=== PATIENT | male | born 1990 | race Caucasian/White ===

== ENCOUNTER 2017-12-06 21:04 | Inpatient (IN) | payer SELFPAY ==
[2017-12-06 22:04] LABS: APPEARANCE,URINE CLEAR; BILIRUBIN,URINE NEGATIVE (NEGATIVE); COLOR,URINE AMBER; GLUCOSE, URINE NEGATIVE (NEGATIVE); KETONES,URINE NEGATIVE (NEGATIVE); LEUKOCYTE ESTERASE,URINE NEGATIVE (NEGATIVE); NITRITE,URINE POSITIVE (NEGATIVE); PROTEIN,URINE NEGATIVE (NEGATIVE); URINE SPECIFIC GRAVITY 1.004
[2017-12-06] MEDS ORDERED: METOCLOPRAMIDE HCL INJ/PF 10 MG/2 ML SDV IV ONE (22:30)
[2017-12-06] MEDS ORDERED: KETOROLAC TROMETHAMINE INJ/PF 30 MG/1 ML SDV IV ONE (22:30)
--- NOTE | 2017-12-06 22:58 | RADIOLOGY REPORT (SQ) ---
CT abdomen and pelvis without contrast on 12/06/2017 CLINICAL INDICATION: Lower abdominal pain TECHNIQUE: Multiple axial images are obtained throughout the abdomen and pelvis without the administration of contrast. This exam was performed according to our departmental dose-optimization program, which includes automated exposure control, adjustment of the mA and/or kV according to patient size and/or use of iterative reconstruction technique. Total DLP is 1174.01 mGy*cm. COMPARISON: None FINDINGS: Abdomen: The lung bases are clear. There are no renal or ureteral stones and no hydronephrosis. The unenhanced solid abdominal organs are unremarkable. There is no abdominal adenopathy. There is no free fluid or free air within the abdomen. The abdominal portion of the GI tract is unremarkable. Pelvis: There is an oval fluid collection in the right pelvis with surrounding fat stranding. This measures approximately 6.7 x 3.6 x 5.8 cm. Portion of this is in contact with the right aspect of the sigmoid colon. A few diverticula are noted. Portion of this superiorly is in contact with a small bowel loop. Normal appendix is visualized in the right lower quadrant away from the fluid collection and area of inflammation in the right pelvis. This fluid collection most likely represents abscess although no air is present. Most likely etiology would be from diverticulitis although definite site of diverticulitis is not visualized. Small bowel abnormality is also possible. Would recommend treatment for infection and short-term follow-up examination with IV and oral and possibly rectal contrast to better evaluate. The area of inflammation and fluid collection is near where the distal portion of the appendix may be extending into the right pelvis and therefore cannot completely exclude perforated distal tip appendicitis but the appendix that is visualized appears unremarkable and this is not favored. There is no pelvic adenopathy. No bony abnormality is noted. IMPRESSION: 1. 6.7 cm fluid collection with surrounding inflammation in the right pelvis most consistent with abscess. Exact etiology of this abscess is not confidently visualized on this unenhanced CT. Most likely etiology would be from diverticulitis although definite site of diverticulitis is not visualized. This inflammation is away from a normal-appearing appendix although the distalmost appendix may extend up to near the area of inflammation and therefore perforated distal tip appendicitis is not fully excluded. Follow-up CT with IV, oral and possibly rectal contrast could better evaluate. 2. No other acute abnormality.
[2017-12-06 23:10] LABS: HEMATOCRIT 43.6 % (37.9-51.0); MEAN CORPUSCULAR HEMOGLOBIN 31.1 pg (27.0-33.4); MEAN CORPUSCULAR HGB CONC 34.3 g/dL (32.0-36.0); MEAN CORPUSCULAR VOLUME 91 fl (80-97); PLATELET COUNT 280 10^3/uL (150-450); RED BLOOD COUNT 4.82 10^6/uL (4.35-5.55); RED CELL DISTRIBUTION WIDTH 13.2 % (11.5-14.0); WHITE BLOOD COUNT 20.5 10^3/uL (4.0-10.5)
[2017-12-06] MEDS ORDERED: ERTAPENEM SODIUM INJ 1 GM VIAL IV ONE (23:32)
[2017-12-06] MEDS ORDERED: FENTANYL CITRATE INJ/PF 100 MCG/2 ML AMPUL IV ONE (23:33)
[2017-12-06 23:36] LABS: ABSOLUTE LYMPHOCYTES# (MANUAL) 2.1 10^3/uL (0.5-4.7); ABSOLUTE MONOCYTES # (MANUAL) 2.1 10^3/uL (0.1-1.4); ABSOLUTE NEUTROPHILS# (MANUAL) 16.4 10^3/uL (1.7-8.2); BASOPHILS % (MANUAL) 0 % (0-2); EOSINOPHILS % (MANUAL) 0 % (0-6); LYMPHOCYTES % (MANUAL) 10 % (13-45); MONOCYTES % (MANUAL) 10 % (3-13); SEGMENTED NEUTROPHILS % (MAN) 80 % (42-78); TOTAL CELLS COUNTED 100
[2017-12-06 23:37] LABS: PLATELET COMMENT ADEQUATE; RBC MORPHOLOGY COMMENT NORMO-CYTIC/CHROMIC
--- NOTE | 2017-12-06 23:38 | ER Document Report ---
ED General - General Mode of Arrival: Ambulatory Information source: Patient TRAVEL OUTSIDE OF THE [place] IN LAST 30 DAYS: No <MELODY HATCH - Last Filed: 12/07/17 00:03> <JATIN PAREDES - Last Filed: 12/07/17 00:34> - General Chief Complaint: Abdominal Pain Stated Complaint: ABDOMINAL PAIN Time Seen by Provider: 12/06/17 22:03 Notes: 19-year-old male patient presents with 1 week of low abdominal pain that radiates into his rectal area. Patient reports that the pain started approximately 9 days ago lasted for 7 days resolved for 2 days and returned today. Patient reports that he has had nausea with vomiting 2 today, denies any diarrhea. Patient also reports some pain with urination and difficulty getting his stream started. Patient reports fever at home today of 99.5. Patient is otherwise healthy has no past medical or surgical history and does not take any medications. (MELODY HATCH) - Related Data Allergies/Adverse Reactions: No Known Allergies Allergy (Unverified 01/11/15 11:33) Past Medical History - General Information source: Patient - Social History Smoking Status: Current Every Day Smoker Chew tobacco use (# tins/day): No Frequency of alcohol use: None Drug Abuse: None Family History: Reviewed & Not Pertinent Patient has suicidal ideation: No Patient has homicidal ideation: No - Medical History Medical History: Negative Renal/ Medical History: Denies: Hx Peritoneal Dialysis Past Surgical History: Reports: Hx Orthopedic Surgery - hand - Immunizations Hx Diphtheria, Pertussis, Tetanus Vaccination: Yes <MELODY HATCH - Last Filed: 12/07/17 00:03> Review of Systems - Review of Systems Constitutional: No symptoms reported EENT: No symptoms reported Cardiovascular: No symptoms reported Respiratory: No symptoms reported Gastrointestinal: See HPI Genitourinary: See HPI Male Genitourinary: No symptoms reported Musculoskeletal: No symptoms reported Skin: No symptoms reported Hematologic/Lymphatic: No symptoms reported Neurological/Psychological: No symptoms reported <MELODY HATCH - Last Filed: 12/07/17 00:03> Physical Exam <MELODY HATCH - Last Filed: 12/07/17 00:03> <JATIN PAREDES - Last Filed: 12/07/17 00:34> - Vital signs Vitals: Temp Pulse Resp BP Pulse Ox 99.3 F 79 18 133/71 H 96 12/06/17 21:33 12/06/17 21:33 12/06/17 21:33 12/06/17 21:33 12/06/17 21:33 - Notes Notes: PHYSICAL EXAMINATION: GENERAL: Ill-appearing, well-nourished and in moderate distress. HEAD: Atraumatic, normocephalic. EYES: Pupils equal round and reactive to light, extraocular movements intact, sclera anicteric, conjunctiva are normal. ENT: Nares patent, oropharynx clear without exudates. Moist mucous membranes. NECK: Normal range of motion, supple without lymphadenopathy LUNGS: Breath sounds clear to auscultation bilaterally and equal. No wheezes rales or rhonchi. HEART: Regular rate and rhythm without murmurs ABDOMEN: TTP to RLQ through LLQ worse on right. Guarding present, no rebound. No masses appreciated. Musculoskeletal: Normal range of motion, no pitting or edema. No cyanosis. NEUROLOGICAL: Cranial nerves grossly intact. Normal speech, normal gait. Normal sensory, motor exams PSYCH: Normal mood, normal affect. SKIN: Warm, diaphoretic, normal turgor, no rashes or lesions noted. (MELODY HATCH) Course - Laboratory Result Diagrams: 12/06/17 22:51 12/06/17 22:51 <MELODY HATCH - Last Filed: 12/07/17 00:03> - Laboratory Result Diagrams: 12/06/17 22:51 12/06/17 22:51 <JATIN PAREDES - Last Filed: 12/07/17 00:34> - Re-evaluation Re-evalutation: Otherwise healthy 27-year-old male presenting with complaints of low abdominal pain. Pain is worse to the right lower quadrant. Patient does not have any history of renal stones however patient does have positive nitrites on his urinalysis and patient is complaining of pain with urination. While awaiting lab work will order CT limited to evaluate for renal stone. Patient's vital signs are stable, patient is not tachycardic and is normotensive however patient does appear to be in acute pain. CT abdomen pelvis reveals a pelvic abscess measuring approximately 6.7 x 3.6 x 5.8 cm. I consulted my attending physician Dr. Paredes who came to the bedside to evaluate the patient. Patient does not have any swelling to his scrotum nor does he have any abnormalities around his rectal area. Upon further questioning patient and now reports that approximately 1 month ago he had a abscess to his perennial area that they thought have resolved. Called and spoke with Dr. León general surgeon who will be reviewing the images from the patient's CT scan. Patient and his are up to date as to the findings up to this point. Dr. Paredes was present at bedside for this discussion. Patient will be started on Invanz and will be given additional IV pain medications. 12/06/17 23:45 Dr. León at bedside evaluating patient. WBC 20.5 with left shift. (MELODY HATCH) 12/07/17 00:32 Patient was initially seen by the nurse practitioner, Melody Hatch. She felt the patient looked ill and appropriately obtain an immediate CT scan. CT scan showed a pelvic abscess. I looked at CT scan with and evaluate the patient. Patient's initially had pain approximately a week to week and half ago. It then went away and came back 3 days ago. Is to continue worse and therefore is come to the ER. No fevers. No vomiting. No diarrhea. The only other symptoms he had was approximately 3-4 weeks ago he had what sounds to be very a developing perineal abscess which eventually went away on its own. He takes no medications and otherwise healthy. On exam he has no genital pain. He has some lower abdominal pain and suprapubic region. He does not have any swelling around the rectal area. Dr. León was called and he did come and evaluate the patient for definitive care for his abscess. Invanz has been given. Dictation of this chart was performed using voice recognition software; therefore, there may be some unintended grammatical errors. (JATIN PAREDES) - Vital Signs Vital signs: Temp Pulse Resp BP Pulse Ox 98.9 F 79 25 H 146/72 H 97 12/07/17 00:08 12/06/17 21:33 12/07/17 00:00 12/06/17 22:41 12/06/17 23:00 - Laboratory Laboratory results interpreted by me: 12/06/17 12/06/17 21:50 22:51 WBC 20.5 H Seg Neuts % (Manual) 80 H Lymphocytes % (Manual) 10 L Abs Neuts (Manual) 16.4 H Abs Monocytes (Manual) 2.1 H Urine Nitrite POSITIVE H Urine Urobilinogen 2.0 H Discharge - Discharge Admitting Provider: Surgicalist Unit Admitted: Medical Floor <MELODY HATCH - Last Filed: 12/07/17 00:03> <JATIN PAREDES - Last Filed: 12/07/17 00:34> - Discharge Clinical Impression: Pelvic abscess in male Abdominal pain Qualifiers: Abdominal location: right lower quadrant Qualified Code(s): R10.31 - Right lower quadrant pain Leukocytosis Qualifiers: Leukocytosis type: unspecified Qualified Code(s): D72.829 - Elevated white blood cell count, unspecified Condition: Stable Disposition: ADMITTED INPATIENT
--- NOTE | 2017-12-07 00:16 | PDOC H&P ---
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 He has dysuria and frequency. He denies similar episodes, history of trauma, previous gastrointestinal problems. Approximately 1 month ago, and 6 months ago, he had a small perineal abscess drained spontaneously. He is seen in the emergency department where he underwent CT scan of showed an intra-pelvic abscess possibly related to diverticulitis. Surgery was consulted and he was advised admission. Past Medical History Past Medical History: None Past Surgical History Past Surgical History: No Past Surgical History: Reports: Orthopedic Surgery - hand Social History Smoking Status: Current Every Day Smoker Family History Family History: Reviewed & Not Pertinent Parental Family History Reviewed: Yes Children Family History Reviewed: Yes Sibling(s) Family History Reviewed.: Yes Medication/Allergy Home Medications: Oxycodone HCl/Acetaminophen [Percocet 5-325 mg Tablet] 1 tab PO QID #15 tablet 01/11/15 Allergies/Adverse Reactions: No Known Allergies Allergy (Unverified 01/11/15 11:33) Review of Systems Constitutional: PRESENT: other - Patient denies weight loss anorexia Eyes: ABSENT: visual disturbances Ears: ABSENT: hearing changes Cardiovascular: ABSENT: chest pain, dyspnea on exertion, edema, orthropnea, palpitations Gastrointestinal: ABSENT: abdominal pain, constipation, diarrhea, hematemesis, hematochezia, nausea, vomiting Genitourinary: PRESENT: difficulty urinating Neurological: ABSENT: abnormal gait, abnormal speech, confusion, dizziness, focal weakness, syncope Psychiatric: ABSENT: anxiety, depression, homidical ideation, suicidal ideation Endocrine: ABSENT: cold intolerance, heat intolerance, polydipsia, polyuria Hematologic/Lymphatic: ABSENT: easy bleeding, easy bruising Physical Exam Vital Signs: Temp Pulse Resp BP Pulse Ox 98.9 F 79 25 H 146/72 H 97 12/07/17 00:08 12/06/17 21:33 12/07/17 00:00 12/06/17 22:41 12/06/17 23:00 Intake & Output 12/05/17 12/06/17 12/07/17 06:59 06:59 06:59 Weight 128.7 kg General appearance: PRESENT: mild distress Head exam: PRESENT: normocephalic Ear exam: PRESENT: normal external ear exam Mouth exam: PRESENT: dry mucosa Neck exam: PRESENT: full ROM Respiratory exam: PRESENT: rhonchi Cardiovascular exam: PRESENT: RRR Pulses: PRESENT: normal carotid pulses, normal radial pulses, normal femoral pulses GI/Abdominal exam: PRESENT: other - Tender deep pelvis no peritoneal signs no rigidity no Rectal exam: PRESENT: other - Perineum unremarkable; rectal exam reveals normal sphincter tone; posterior surface prostate gland smooth; I cannot palpate any masses or focal tenderness. Gentrourinary exam: PRESENT: other - No evidence of hernias; penis circumcised. Musculoskeletal exam: PRESENT: full ROM Neurological exam: PRESENT: alert, awake, oriented to person, oriented to place , oriented to time Psychiatric exam: PRESENT: anxious Results Laboratory Results: 12/06/17 22:51 12/06/17 22:51 12/06/17 12/06/17 12/06/17 21:50 22:51 22:51 WBC 20.5 H RBC 4.82 Hgb 15.0 Hct 43.6 MCV 91 MCH 31.1 MCHC 34.3 RDW 13.2 Plt Count 280 Seg Neutrophils % Not Reportable Lymphocytes % Not Reportable Monocytes % Not Reportable Eosinophils % Not Reportable Basophils % Not Reportable Absolute Neutrophils Not Reportable Absolute Lymphocytes Not Reportable Absolute Monocytes Not Reportable Absolute Eosinophils Not Reportable Absolute Basophils Not Reportable Sodium Cancelled Potassium Cancelled Chloride Cancelled Carbon Dioxide Cancelled Anion Gap Cancelled BUN Cancelled Creatinine Cancelled Est GFR ( Amer) Cancelled Est GFR (Non-Af Amer) Cancelled Glucose Cancelled Calcium Cancelled Total Bilirubin Cancelled AST Cancelled ALT Cancelled Alkaline Phosphatase Cancelled Total Protein Cancelled Albumin Cancelled Lipase Cancelled Urine Color DANIA Urine Appearance CLEAR Urine pH 6.0 Ur Specific [place] 1.004 Urine Protein NEGATIVE Urine Glucose (UA) NEGATIVE Urine Ketones NEGATIVE Urine Blood NEGATIVE Urine Nitrite POSITIVE H Ur Leukocyte Esterase NEGATIVE Urine WBC (Auto) 0 Impressions: Abdomen/Pelvis CT 12/06/17 22:29 IMPRESSION: 1. 6.7 cm fluid collection with surrounding inflammation in the right pelvis most consistent with abscess. Exact etiology of this abscess is not confidently visualized on this unenhanced CT. Most likely etiology would be from diverticulitis although definite site of diverticulitis is not visualized. This inflammation is away from a normal-appearing appendix although the distalmost appendix may extend up to near the area of inflammation and therefore perforated distal tip appendicitis is not fully excluded. Follow-up CT with IV, oral and possibly rectal contrast could better evaluate. 2. No other acute abnormality. Assessment & Plan - Diagnosis (1) Pelvic abscess in male Is this a current diagnosis for this admission?: Yes Plan: Subacute pelvic pain, dysuria, leukocytosis, and CT scan findings consistent with intra-pelvic abscess; exact etiology undetermined secondary to absence of oral and IV contrast; clinically suspect this is a pericolonic abscess appendiceal abscess also possible. Recommendations: 1. Admit, n.p.o., IV fluids, pain medication 2. Will review CT scan with radiology in the morning; consider rectal contrast to help delineate pathoanatomy; consider CT scan guided drainage however high location may make her drainage difficult. 3. Explained above to the patient and his . I believe they understand and agree to proceed. (2) Smoker Is this a current diagnosis for this admission?: Yes (3) Obesity Qualifiers: Obesity type: due to excess calories Is this a current diagnosis for this admission?: Yes (4) Abdominal pain Qualifiers: Abdominal location: right lower quadrant Qualified Code(s): R10.31 - Right lower quadrant pain Is this a current diagnosis for this admission?: Yes - Time Time Spent: 30 to 50 Minutes Critical Time spent with patient: Less than 15 minutes Medications reviewed and adjusted accordingly: Yes Anticipated discharge: Home - Inpatient Certification Based on my medical assessment, after consideration of the patient's comorbidities, presenting symptoms, or acuity I expect that the services needed warrant INPATIENT care.: Yes I certify that my determination is in accordance with my understanding of Medicare's requirements for reasonable and necessary INPATIENT services [42 CFR 412.3e].: Yes Medical Necessity: Need For IV Fluids, Need for Pain Control, Need for IV Antibiotics
[2017-12-07] MEDS ORDERED: AMPICILLIN SOD/SULBACTAM 3 GM VIAL IV PRN (00:24)
[2017-12-07 00:58] LABS: ALANINE AMINOTRANSFERASE 42 U/L (21-72); ALKALINE PHOSPHATASE 93 U/L (38-126); ANION GAP 11 (5-19); ASPARTATE AMINO TRANSFERASE 18 U/L (17-59); BILIRUBIN,DIRECT 0.2 mg/dL (0.0-0.4); BILIRUBIN,TOTAL 0.9 mg/dL (0.2-1.3); BLOOD UREA NITROGEN 11 mg/dL (7-20); CALCIUM 9.7 mg/dL (8.4-10.2); CARBON DIOXIDE 24 mmol/L (22-30); CHLORIDE 103 mmol/L (98-107); GLUCOSE 100 mg/dL (75-110); LIPASE 22.7 U/L (23-300); SODIUM 137.9 mmol/L (137-145); TOTAL PROTEIN 6.7 g/dL (6.3-8.2)
[2017-12-07] MEDS: ONDANSETRON HCL INJ/PF 4 MG/2 ML SDV IV PRN ×3 (02:50→23:47)
[2017-12-07] MEDS: KETOROLAC TROMETHAMINE INJ/PF 30 MG/1 ML SDV IV PRN ×3 (04:45→22:38)
[2017-12-07] MEDS: AMPICILLIN SODIUM/SULBACTAM NA 3 GM in NORMAL SALINE 100 ML IV SCH ×3 (04:45→22:37)
[2017-12-07] MEDS ORDERED: ACETAMINOPHEN INJ/PF 1000 MG/100 ML SDV IV SCH (06:00)
[2017-12-07] MEDS ORDERED: KETOROLAC TROMETHAMINE INJ/PF 30 MG/1 ML SDV IV ONE (08:45)
[2017-12-07] MEDS: HYDROMORPHONE HCL INJ/PF 2 MG/ML AMPULE IV PRN ×3 (10:50→23:48)
--- NOTE | 2017-12-07 10:54 | PDOC PROGRESS REPORT ---
Subjective Progress Note for:: 12/07/17 Subjective:: Abdominal pain nausea vomiting Reason For Visit: PELVIC ABSCESS LIKELY SECONDARY TO SIGMOID Physical Exam Vital Signs: Temp Pulse Resp BP Pulse Ox 98.6 F 95 17 141/84 H 98 12/07/17 08:00 12/07/17 08:00 12/07/17 08:00 12/07/17 08:00 12/07/17 08:00 Intake & Output 12/06/17 12/07/17 12/08/17 06:59 06:59 06:59 Intake Total 426 Balance 426 Weight 128.6 kg General appearance: PRESENT: mild distress GI/Abdominal exam: PRESENT: other - Abdomen soft but tender in the pelvic area Results Impressions: Abdomen/Pelvis CT 12/06/17 22:29 IMPRESSION: 1. 6.7 cm fluid collection with surrounding inflammation in the right pelvis most consistent with abscess. Exact etiology of this abscess is not confidently visualized on this unenhanced CT. Most likely etiology would be from diverticulitis although definite site of diverticulitis is not visualized. This inflammation is away from a normal-appearing appendix although the distalmost appendix may extend up to near the area of inflammation and therefore perforated distal tip appendicitis is not fully excluded. Follow-up CT with IV, oral and possibly rectal contrast could better evaluate. 2. No other acute abnormality. Assessment & Plan - Diagnosis (1) Pelvic abscess in male Is this a current diagnosis for this admission?: Yes Plan: 8 hours following admission for pelvic abscess likely of diverticular etiology. Symptomatic, no fever Plan: 1. Continue IV antibiotics n.p.o. 2. I spoke with Dr. Scott, radiologist in [place], who agrees with percutaneous drainage. She will set up a team to come down to [facility] to perform CT-guided pelvic abscess drainage. I discussed the mechanics of the seizure, and reviewed imaging with the patient, patient's family including patient's mother who is a nurse practitioner. They expressed her understanding and agreed to proceed. (2) Smoker Is this a current diagnosis for this admission?: Yes (3) Obesity Qualifiers: Obesity type: due to excess calories Is this a current diagnosis for this admission?: Yes (4) Abdominal pain Qualifiers: Abdominal location: right lower quadrant Qualified Code(s): R10.31 - Right lower quadrant pain Is this a current diagnosis for this admission?: Yes
[2017-12-07] MEDS: RINGERS SOLUTION,LACTATED 1,000 ML IV PRN ×2 (10:57)
[2017-12-07 11:35] LABS: INTERNATIONAL RATION (INR) 1.09; PARTIAL THROMBOPLASTIN TIME 26.6 SEC (23.5-35.8); PROTHROMBIN TIME 14.7 SEC (11.4-15.4)
[2017-12-07] MEDS: ACETAMINOPHEN 1,000 MG/100 ML RTUPB IV SCH ×3 (11:59→23:48)
[2017-12-07] MEDS ORDERED: LIDOCAINE 0.5% INJ-PF (5 MG/ML) 50 ML SDV ONE (12:00)
[2017-12-07] MEDS ORDERED: MIDAZOLAM 2 MG/2 ML INJ ONE (12:51)
[2017-12-07] MEDS ORDERED: FENTANYL CITRATE INJ/PF 100 MCG/2 ML AMPUL ONE (12:52)
[2017-12-07] MEDS ORDERED: PROMETHAZINE HCL INJ 25 MG/1 ML VIAL ONE (12:52)
[2017-12-07] MEDS ORDERED: LIDOCAINE 1% INJ-PF (10 MG/ML) 30 ML SDV ONE (12:59)
[2017-12-07] MEDS: PROMETHAZINE HCL INJ 25 MG/1 ML VIAL IV PRN (13:15)
--- NOTE | 2017-12-07 14:22 | RADIOLOGY REPORT (SQ) ---
EXAM DESCRIPTION: CT GUIDED PERCUT DRAIN W/CATH COMPLETED DATE/TIME: 12/07/2017 2:06 pm REASON FOR STUDY: ABCESS COMPARISON: CT abdomen pelvis dated 12/07/2017 FLUORO TIME: 2.7 seconds 5 series of images saved to PACS. TECHNIQUE: Image guided chest tube placement using sterile technique. RADIATION DOSE: 20.83 mGy LIMITATIONS: None FINDINGS: After written consent was obtained and explaining the risks and benefits of conscious luis tion , the patient was placed supine. A time out was then called for site verification. An entry sit e was then marked using CT guidance. The right lower quadrant was then prepped and draped in a steri le fashion. The site was then anesthetized using 10 ml of 1% lidocaine solution. An 11 blade scalpe l was used to make a small skin incision. A 18 gauge needle was advanced into the pelvic fluid colle ction under CT guidance. Thick a yellow fluid was aspirated. A.038 guidewire was passed through the needle and coiled into the pelvic collection. The tract was then sequentially dilated. A 10 Serbian drainage catheter was then placed and the cavity decompressed. The catheter was then connected to s uction drainage and secured in position. Patient tolerated procedure well and left the CT suite in s table condition. IV conscious sedation was administered and physician direction by the registered nurse using 2 millig yu of Versed and 100 micrograms of fentanyl. Physiologic monitoring was provided before, during, an d after sedation. The total sedation time was 20 minutes. Documentation face to face time, the performing proceduralist, spent monitoring the patient: 20minute s. IMPRESSION: SUCCESSFUL PLACEMENT OF A right pelvic 10 Serbian drainage catheter under CT guidance as described. COMMENT: Patient medication list reviewed: Yes- Quality ID# [id number]:Eligible professional attests to do cumenting in the medical record they obtained, updated, or reviewed the patient's current medications . Quality ID 145: Final reports for procedures using fluoroscopy that document radiation exposure angel melody, or exposure time and number of fluorographic images (if radiation exposure indices are not avail able) TECHNICAL DOCUMENTATION: JOB ID: [id number] [employer]- All Rights Reserved rev Reading location - IP/workstation name: [facility]
[2017-12-08] MEDS: HYDROMORPHONE HCL INJ/PF 2 MG/ML AMPULE IV PRN ×5 (03:41→20:12)
[2017-12-08] MEDS: ACETAMINOPHEN 1,000 MG/100 ML RTUPB IV SCH ×3 (05:56→17:54)
[2017-12-08] MEDS: AMPICILLIN SODIUM/SULBACTAM NA 3 GM in NORMAL SALINE 100 ML IV SCH ×3 (05:57→22:00)
[2017-12-08] MEDS: ONDANSETRON HCL INJ/PF 4 MG/2 ML SDV IV PRN ×4 (07:43→20:12)
--- NOTE | 2017-12-08 13:41 | PDOC PROGRESS REPORT ---
Subjective Progress Note for:: 12/08/17 Subjective:: c/o abdominal discomfort at drain site Reason For Visit: PELVIC ABSCESS LIKELY SECONDARY TO SIGMOID Physical Exam Vital Signs: Temp Pulse Resp BP Pulse Ox 98.5 F 86 18 131/71 H 94 12/08/17 12:32 12/08/17 12:32 12/08/17 12:32 12/08/17 12:32 12/08/17 12:32 Intake & Output 12/07/17 12/08/17 12/09/17 06:59 06:59 06:59 Intake Total 426 5392 Output Total 50 Balance 426 5342 Weight 128.6 kg 263.63 kg General appearance: PRESENT: no acute distress, cooperative GI/Abdominal exam: PRESENT: soft, tenderness - hypogastrium Results Impressions: Abdomen/Pelvis CT 12/06/17 22:29 IMPRESSION: 1. 6.7 cm fluid collection with surrounding inflammation in the right pelvis most consistent with abscess. Exact etiology of this abscess is not confidently visualized on this unenhanced CT. Most likely etiology would be from diverticulitis although definite site of diverticulitis is not visualized. This inflammation is away from a normal-appearing appendix although the distalmost appendix may extend up to near the area of inflammation and therefore perforated distal tip appendicitis is not fully excluded. Follow-up CT with IV, oral and possibly rectal contrast could better evaluate. 2. No other acute abnormality. Percutaneous Drainage 12/07/17 00:00 IMPRESSION: SUCCESSFUL PLACEMENT OF A right pelvic 10 Malian drainage catheter under CT guidance as described. Assessment & Plan - Diagnosis (1) Pelvic abscess in male Is this a current diagnosis for this admission?: Yes - Plan Summary Plan Summary: A/ POD#1 after drainage of pelvi abscess by IR preliminary Cx shows GNR. identification and susceptibility pending VSS, AF no new blood work P/ continue IV Abx waiting for final cx results once cx results are available, I will consult the ID specialist over the phone and request advice for type, duration, and route of administration of outpatient antibiotic (oral vs. IV)
[2017-12-09] MEDS: ACETAMINOPHEN 1,000 MG/100 ML RTUPB IV SCH ×4 (00:10→18:01)
[2017-12-09] MEDS: ONDANSETRON HCL INJ/PF 4 MG/2 ML SDV IV PRN ×2 (00:10→04:31)
[2017-12-09] MEDS: HYDROMORPHONE HCL INJ/PF 2 MG/ML AMPULE IV PRN ×6 (00:10→20:38)
[2017-12-09] MEDS: AMPICILLIN SODIUM/SULBACTAM NA 3 GM in NORMAL SALINE 100 ML IV SCH ×3 (06:02→21:49)
[2017-12-09 06:52] LABS: ABSOLUTE EOSINOPHILS # (AUTO) 0.2 10^3/uL (0.0-0.6); ABSOLUTE LYMPHOCYTES (AUTO) 1.5 10^3/uL (0.5-4.7); ABSOLUTE MONOCYTES (AUTO) 0.8 10^3/uL (0.1-1.4); ABSOLUTE NEUT (AUTO) 14.5 10^3/uL (1.7-8.2); BASOPHILS % (AUTO) 0.3 % (0-2); EOSINOPHILS % (AUTO) 1.2 % (0-6); HEMATOCRIT 39.8 % (37.9-51.0); HEMOGLOBIN 13.5 g/dL (13.5-17.0); LYMPHOCYTES % (AUTO) 8.6 % (13-45); MEAN CORPUSCULAR HEMOGLOBIN 30.8 pg (27.0-33.4); MEAN CORPUSCULAR HGB CONC 33.8 g/dL (32.0-36.0); MEAN CORPUSCULAR VOLUME 91 fl (80-97); MONOCYTES % (AUTO) 4.5 % (3-13); PLATELET COUNT 193 10^3/uL (150-450); RED BLOOD COUNT 4.38 10^6/uL (4.35-5.55); RED CELL DISTRIBUTION WIDTH 13.3 % (11.5-14.0); SEGMENTED NEUTROPHILS % (AUTO) 85.4 % (42-78); TOTAL CELLS COUNTED % (AUTO) 100 %
[2017-12-09 07:06] LABS: ANION GAP 11 (5-19); BLOOD UREA NITROGEN 7 mg/dL (7-20); CALCIUM 8.9 mg/dL (8.4-10.2); CARBON DIOXIDE 24 mmol/L (22-30); CHLORIDE 107 mmol/L (98-107); GLUCOSE 78 mg/dL (75-110); POTASSIUM 3.8 mmol/L (3.6-5.0); SODIUM 141.7 mmol/L (137-145)
--- NOTE | 2017-12-09 07:31 | PDOC PROGRESS REPORT ---
Subjective Progress Note for:: 12/09/17 Subjective:: c/o poor appetite, he is tolerating low residue diet Reason For Visit: PELVIC ABSCESS LIKELY SECONDARY TO SIGMOID Physical Exam Vital Signs: Temp Pulse Resp BP Pulse Ox 98.1 F 74 18 124/64 97 12/08/17 23:14 12/08/17 23:14 12/08/17 23:14 12/08/17 23:14 12/08/17 23:14 Intake & Output 12/08/17 12/09/17 12/10/17 06:59 06:59 06:59 Intake Total 5392 3662 Output Total 50 10 Balance 5342 3652 Weight 263.63 kg 121.2 kg GI/Abdominal exam: PRESENT: soft, other - RLQ drain with scant, yellow fluid Results Laboratory Results: 12/09/17 06:29 12/09/17 06:29 12/09/17 12/09/17 12/09/17 05:00 05:00 06:29 WBC Cancelled 17.0 H RBC Cancelled 4.38 Hgb Cancelled 13.5 Hct Cancelled 39.8 MCV Cancelled 91 MCH Cancelled 30.8 MCHC Cancelled 33.8 RDW Cancelled 13.3 Plt Count Cancelled 193 Seg Neutrophils % Cancelled 85.4 H Lymphocytes % Cancelled 8.6 L Monocytes % Cancelled 4.5 Eosinophils % Cancelled 1.2 Basophils % Cancelled 0.3 Absolute Neutrophils Cancelled 14.5 H Absolute Lymphocytes Cancelled 1.5 Absolute Monocytes Cancelled 0.8 Absolute Eosinophils Cancelled 0.2 Absolute Basophils Cancelled 0.0 Sodium Cancelled Potassium Cancelled Chloride Cancelled Carbon Dioxide Cancelled Anion Gap Cancelled BUN Cancelled Creatinine Cancelled Est GFR ( Amer) Cancelled Est GFR (Non-Af Amer) Cancelled Glucose Cancelled Calcium Cancelled 12/09/17 06:29 WBC RBC Hgb Hct MCV MCH MCHC RDW Plt Count Seg Neutrophils % Lymphocytes % Monocytes % Eosinophils % Basophils % Absolute Neutrophils Absolute Lymphocytes Absolute Monocytes Absolute Eosinophils Absolute Basophils Sodium 141.7 Potassium 3.8 Chloride 107 Carbon Dioxide 24 Anion Gap 11 BUN 7 Creatinine 0.83 Est GFR ( Amer) > 60 Est GFR (Non-Af Amer) > 60 Glucose 78 Calcium 8.9 Impressions: Abdomen/Pelvis CT 12/06/17 22:29 IMPRESSION: 1. 6.7 cm fluid collection with surrounding inflammation in the right pelvis most consistent with abscess. Exact etiology of this abscess is not confidently visualized on this unenhanced CT. Most likely etiology would be from diverticulitis although definite site of diverticulitis is not visualized. This inflammation is away from a normal-appearing appendix although the distalmost appendix may extend up to near the area of inflammation and therefore perforated distal tip appendicitis is not fully excluded. Follow-up CT with IV, oral and possibly rectal contrast could better evaluate. 2. No other acute abnormality. Percutaneous Drainage 12/07/ 00:00 IMPRESSION: SUCCESSFUL PLACEMENT OF A right pelvic 10 Samoan drainage catheter under CT guidance as described. Assessment & Plan - Diagnosis (1) Pelvic abscess in male Is this a current diagnosis for this admission?: Yes - Plan Summary Plan Summary: A/ POD#2 after IR pelvic abscess drain placement Small amount of fluid drained past 24 hrs (10 ml) WBC still elevated, but improving (17K) Cx significant for GNR and cocci in pairs P/ Once final cx are available, I will contact the [facility] and obtain recommendations about home abx therapy
[2017-12-09] MEDS: PROMETHAZINE HCL INJ 25 MG/1 ML VIAL IV PRN ×2 (08:32→18:02)
[2017-12-09] MEDS: KETOROLAC TROMETHAMINE INJ/PF 30 MG/1 ML SDV IV PRN (20:06)
[2017-12-09] MEDS: RINGERS SOLUTION,LACTATED 1,000 ML IV PRN (20:38)
[2017-12-10] MEDS: HYDROMORPHONE HCL INJ/PF 2 MG/ML AMPULE IV PRN ×2 (00:53→05:02)
[2017-12-10] MEDS: ACETAMINOPHEN 1,000 MG/100 ML RTUPB IV SCH ×2 (00:55→06:05)
[2017-12-10] MEDS: KETOROLAC TROMETHAMINE INJ/PF 30 MG/1 ML SDV IV PRN (02:34)
[2017-12-10] MEDS: AMPICILLIN SODIUM/SULBACTAM NA 3 GM in NORMAL SALINE 100 ML IV SCH ×2 (05:04→13:29)
[2017-12-10] MEDS: RINGERS SOLUTION,LACTATED 1,000 ML IV PRN (06:07)
[2017-12-10 06:16] LABS: ABSOLUTE EOSINOPHILS # (AUTO) 0.2 10^3/uL (0.0-0.6); ABSOLUTE LYMPHOCYTES (AUTO) 2.8 10^3/uL (0.5-4.7); ABSOLUTE MONOCYTES (AUTO) 0.8 10^3/uL (0.1-1.4); ABSOLUTE NEUT (AUTO) 7.3 10^3/uL (1.7-8.2); BASOPHILS % (AUTO) 0.4 % (0-2); EOSINOPHILS % (AUTO) 2.2 % (0-6); HEMATOCRIT 37.9 % (37.9-51.0); HEMOGLOBIN 12.9 g/dL (13.5-17.0); LYMPHOCYTES % (AUTO) 24.9 % (13-45); MEAN CORPUSCULAR HEMOGLOBIN 30.9 pg (27.0-33.4); MEAN CORPUSCULAR VOLUME 91 fl (80-97); MONOCYTES % (AUTO) 6.9 % (3-13); PLATELET COUNT 202 10^3/uL (150-450); RED BLOOD COUNT 4.17 10^6/uL (4.35-5.55); RED CELL DISTRIBUTION WIDTH 13.4 % (11.5-14.0); SEGMENTED NEUTROPHILS % (AUTO) 65.6 % (42-78); TOTAL CELLS COUNTED % (AUTO) 100 %; WHITE BLOOD COUNT 11.1 10^3/uL (4.0-10.5)
[2017-12-10 06:47] LABS: ANION GAP 11 (5-19); BLOOD UREA NITROGEN 8 mg/dL (7-20); CALCIUM 8.8 mg/dL (8.4-10.2); CARBON DIOXIDE 26 mmol/L (22-30); CHLORIDE 105 mmol/L (98-107); GLUCOSE 74 mg/dL (75-110); POTASSIUM 3.7 mmol/L (3.6-5.0); SODIUM 142.2 mmol/L (137-145)
[2017-12-10] MEDS ORDERED: ACETAMINOPHEN 325 MG TABLET PO PRN (08:34)
--- NOTE | 2017-12-10 08:46 | PDOC PROGRESS REPORT ---
Subjective Progress Note for:: 12/10/17 Subjective:: no c/o, feeling well, bowel function present Reason For Visit: PELVIC ABSCESS LIKELY SECONDARY TO SIGMOID Physical Exam Vital Signs: Temp Pulse Resp BP Pulse Ox 97.7 F 57 L 16 120/69 96 12/10/17 08:00 12/10/17 08:00 12/10/17 08:00 12/10/17 08:00 12/10/17 08:00 Intake & Output 12/09/17 12/10/17 12/11/17 06:59 06:59 06:59 Intake Total 3662 6257 Output Total 10 130 Balance 3652 6197 Weight 121.2 kg 121.7 kg General appearance: PRESENT: no acute distress GI/Abdominal exam: PRESENT: soft, other - drain in RLQ Results Laboratory Results: 12/10/17 05:04 12/10/17 05:04 12/10/17 12/10/17 05:04 05:04 WBC 11.1 H RBC 4.17 L Hgb 12.9 L Hct 37.9 MCV 91 MCH 30.9 MCHC 34.0 RDW 13.4 Plt Count 202 Seg Neutrophils % 65.6 Lymphocytes % 24.9 Monocytes % 6.9 Eosinophils % 2.2 Basophils % 0.4 Absolute Neutrophils 7.3 Absolute Lymphocytes 2.8 Absolute Monocytes 0.8 Absolute Eosinophils 0.2 Absolute Basophils 0.0 Sodium 142.2 Potassium 3.7 Chloride 105 Carbon Dioxide 26 Anion Gap 11 BUN 8 Creatinine 0.81 Est GFR ( Amer) > 60 Est GFR (Non-Af Amer) > 60 Glucose 74 L Calcium 8.8 Impressions: Abdomen/Pelvis CT 12/06/17 22:29 IMPRESSION: 1. 6.7 cm fluid collection with surrounding inflammation in the right pelvis most consistent with abscess. Exact etiology of this abscess is not confidently visualized on this unenhanced CT. Most likely etiology would be from diverticulitis although definite site of diverticulitis is not visualized. This inflammation is away from a normal-appearing appendix although the distalmost appendix may extend up to near the area of inflammation and therefore perforated distal tip appendicitis is not fully excluded. Follow-up CT with IV, oral and possibly rectal contrast could better evaluate. 2. No other acute abnormality. Percutaneous Drainage 12/07/17 00:00 IMPRESSION: SUCCESSFUL PLACEMENT OF A right pelvic 10 Scottish drainage catheter under CT guidance as described. Assessment & Plan - Diagnosis (1) Pelvic abscess in male Is this a current diagnosis for this admission?: Yes - Plan Summary Plan Summary: A/ POD #4 after IR drainage of pelvic abscess WBC normal Cx of abscess show E. Coli sensitive to Unasyn Second organism to be identified P/ As soon as the cx results are available, I will contact the ID service at [facility] to obtain recommendation in regard to antibiotic tx at discharge Continue Unasyn for the time being
[2017-12-10] MEDS ORDERED: TRAMADOL HCL 50 MG TABLET PO PRN (12:03)
--- NOTE | 2017-12-10 15:57 | Progress Note ---
Provider Note Provider Note: ID Consult Note Asked to review patient's chart by Dr. Yarbrough. Pt not seen or examined. Reviewed chart including VS, imaging reports, labs, provider reports. Mr. Stevens is a 27 year old man who presented on 12/07/17 with low abdominal/ pelvic pain worse with movement over the past several days with onset of nausea and vomiting prior to presentation. He had tenderness with deep palpation on exam, fever up to 101.1 F, and leukocytosis up to 20k. CT of the abdomen/pelvis showed an abscess in proximity to the sigmoid colon and diverticula that was 6.7 x 3.6 x 5.8 cm. A drain was placed. Culture from the collection grew 4+ E coli, 3+ Strep mitis, 4+ Propionibacterium species, 4+ Prevotella, 4+ B frag ( beta lactamase positive), Clostridium species (not perfringens), 4+ Peptostreptococcus, and C albicans from broth sub culture only. Pt has been on Unasyn. He has had no further fever. His WBC count has improved and is now normal. Pt is reported to be feeling better. Impression/Recommendations Pt has an intraabdominal abscess with cultures reflecting what would be expected for a typical, community onset source - gut belén with Strep species, enteric gram negative organisms, anaerobes. Pt is an otherwise young adult with few or no comorbidities, and the recovery of Gianna species from broth subculture only reflects a low inoculum. This should not require targeted antifungal therapy. Source control is the most important aspect of management, and drainage should address the bulk of the infection. Adjunctive antimicrobial therapy, in addition to drainage, can continue with PO Augmentin 500/125 mg TID. Transitioning from IV Unasyn to PO Augmentin appears to be appropriate as the patient as a functioning gut, can tolerate PO medications, and has had improvement in his presenting signs/symptoms. Duration of therapy: Could be as little as 4-7 days if adequate source control is achieved. Since the patient requires ongoing catheter drainage of infected collection, it may be reasonable to continue antibiotics for longer, until the efficacy of catheter drainage is established, and potentially could be in the range of 2-3 weeks. Re-imaging patient may be helpful when output drops off to consistently low amount. If collection has resolved, consider stopping at that point. Hubert Lopez MD [facility] pager [phone]
[2017-12-10 16:23] VITALS: BP 144/70
--- NOTE | 2017-12-11 12:50 | DISCHARGE SUMMARY E ---
Discharge Summary NAME: ABDULLAHI SHUKLA : 1990 AGE: 27Y ADMITTED: 12/07/2017 DISCHARGED: 12/10/2017 FINAL DIAGNOSIS: Intraabdominal pelvic abscess. PROCEDURE: On December 07, the patient underwent percutaneous drainage of the pelvic intraabdominal abscess by Interventional Radiology. COMPLICATIONS: None. HOSPITAL COURSE: This is a healthy 27-year-old male who presented to the hospital with abdominal pain. CAT scan of the abdomen and pelvis was done, revealing a large intraabdominal pelvic abscess. The CAT scan was done on December 07, and on the same day, the patient underwent drainage of the pelvic abscess by Interventional Radiology, with drain placement. The patient was then started on IV antibiotics (Unasyn 3 grams IV q.8) with improvement of his general symptoms. The patient's IV fluids were discontinued. His vital signs remained stable. His diet was advanced to regular, and was tolerated. His bowel function returned, with normal stools. The patient's culture final were available on December 10 with Escherichia coli, sensitive to penicillin and low colony count of lg. Infectious Disease consultation was obtained from the [facility] Infectious Disease specialist, who recommended Augmentin 875 mg p.o. b.i.d. for 3 weeks, and followup CAT scan at that time. Also, no treatment for lg was recommended. The patient was therefore discharged on December 10, on a regular diet, activity as tolerated. Keep the drain in place and empty the drain daily, and record the output daily. Bring the output record to the office. Follow up in the office within a week. Augmentin 875 mg p.o. b.i.d. for about 3 weeks. CAT scan is to be repeated in 2 weeks prior to removal of the drain. DICTATING PHYSICIAN: HECTOR HYATT M.D. [id number] PHY#: [id number] ID: [id number] JOB#: [id number] ACCT: [id number] cc:HECTOR HYATT M.D. [facility]
== END 2017-12-10 19:21 | disposition home or self-care (01) | DRG 392 ==
LOC: ER 21:04 → EH 12-07 00:33 → 5 12-07 01:30
PROVIDERS: ADMIT Surgery; ATTEND Surgery
PROC: 0W9J30Z Drainage of Pelvic Cavity with Drainage Device, Percutaneous Approach (ICD-10-PCS; principal; 2017-12-07)
DX: K57.20 Diverticulitis of large intestine with perforation and abscess without bleeding (principal); B96.20 Unspecified Escherichia coli [E. coli] as the cause of diseases classified elsewhere; Z68.36 Body mass index [BMI] 36.0-36.9, adult; E66.09 Other obesity due to excess calories; B95.5 Unspecified streptococcus as the cause of diseases classified elsewhere; B96.6 Bacteroides fragilis [B. fragilis] as the cause of diseases classified elsewhere; F17.210 Nicotine dependence, cigarettes, uncomplicated
CPT/HCPCS: 36415; 74176; 75989; 80048; 80053; 81001; 83690; 85025; 85610; 85730; 87040; 87070; 87075; 87077; 87186; 87205; 96365; 96375; 99285; C1729; C1892; J0131; J0295; J1170; J1335; J1885; J2250; J2405; J2550; J2765; J3010; J3490; J7120

== ENCOUNTER 2017-12-11 00:08 | Emergency (ER) | payer SELFPAY ==
[2017-12-11] MEDS ORDERED: FENTANYL CITRATE INJ/PF 100 MCG/2 ML AMPUL IV ONE (01:27)
[2017-12-11] MEDS: NORMAL SALINE 1000 ML 1,000 ML IV PRN ×2 (01:30→01:43)
[2017-12-11] MEDS ORDERED: METOCLOPRAMIDE HCL INJ/PF 10 MG/2 ML SDV IV ONE (01:31)
[2017-12-11 01:48] LABS: VENOUS BLOOD HCO3 22.1 mmol/L (20-32); VENOUS BLOOD PCO2 32.6 mmHg (35-63); VENOUS BLOOD PH 7.45 (7.30-7.42)
--- NOTE | 2017-12-11 01:48 | ER Document Report ---
ED General - General Chief Complaint: Nausea/Vomiting Stated Complaint: NAUSEA Time Seen by Provider: 12/11/17 01:26 Mode of Arrival: Ambulatory Information source: [facility] Records Notes: 27-year-old male who had a sigmoid abscess with drain placement a few days prior presents with complaints of abd pain, nausea vomiting. pt notes the past 2 days he had done well without pain and nausea medication, was discharge about 6 hours ago. denies any fevers or chills , has had normal bm. TRAVEL OUTSIDE OF THE [place] IN LAST 30 DAYS: No - HPI Onset: Just prior to arrival Onset/Duration: Sudden Quality of pain: Sharp Severity: Moderate Pain Level: 3 Associated symptoms: Nausea, Vomiting Exacerbated by: Denies Relieved by: Denies Similar symptoms previously: Yes Recently seen / treated by doctor: Yes - Related Data Allergies/Adverse Reactions: No Known Allergies Allergy (Unverified 01/11/15 11:33) Past Medical History - Social History Smoking Status: Never Smoker Cigarette use (# per day): No Chew tobacco use (# tins/day): No Smoking Education Provided: No Family History: Reviewed & Not Pertinent Renal/ Medical History: Denies: Hx Peritoneal Dialysis Psychiatric Medical History: Denies: Hx Depression Past Surgical History: Reports: Hx Orthopedic Surgery - hand - Immunizations Hx Diphtheria, Pertussis, Tetanus Vaccination: Yes Review of Systems - Review of Systems Notes: REVIEW OF SYSTEMS: CONSTITUTIONAL : Denies fever, chills, or sweats. Denies recent illness. EENT: Denies eye, ear, throat, or mouth pain or symptoms. Denies nasal or sinus congestion or discharge. Denies throat, tongue, or mouth swelling or difficulty swallowing. CARDIOVASCULAR: Denies chest pain. Denies palpitations or racing or irregular heart beat. Denies ankle edema. RESPIRATORY: Denies cough, cold, or chest congestion. Denies shortness of breath, difficulty breathing, or wheezing. GASTROINTESTINAL: admits to abd pain , nausea vomiting GENITOURINARY: Denies difficulty urinating, painful urination, burning, frequency, blood in urine, or discharge. MUSCULOSKELETAL: Denies back or neck pain or stiffness. Denies joint pain or swelling. SKIN: Denies rash, lesions or sores. HEMATOLOGIC : Denies easy bruising or bleeding. LYMPHATIC: Denies swollen, enlarged glands. NEUROLOGICAL: Denies confusion or altered mental status. Denies passing out or loss of consciousness. Denies dizziness or lightheadedness. Denies headache. Denies weakness or paralysis or loss of use of either side. Denies problems with gait or speech. Denies sensory loss, numbness, or tingling. Denies seizures. PSYCHIATRIC: Denies anxiety or stress. Denies depression, suicidal ideation, or homicidal ideation. ALL OTHER SYSTEMS REVIEWED AND NEGATIVE. Dictation was performed using [facility] voice recognition software PHYSICAL EXAMINATION: GENERAL: Well-appearing, well-nourished and in no acute distress. HEAD: Atraumatic, normocephalic. EYES: Pupils equal round and reactive to light, extraocular movements intact, sclera anicteric, conjunctiva are normal. ENT: Nares patent, oropharynx clear without exudates. Moist mucous membranes. NECK: Normal range of motion, supple without lymphadenopathy LUNGS: Breath sounds clear to auscultation bilaterally and equal. No wheezes rales or rhonchi. HEART: Regular rate and rhythm without murmurs ABDOMEN: Soft, tender all throughout with out guarding, drain i nthe RLQ noted Musculoskeletal: Normal range of motion, no pitting or edema. No cyanosis. NEUROLOGICAL: Cranial nerves grossly intact. Normal speech, normal gait. Normal sensory, motor exams PSYCH: Normal mood, normal affect. SKIN: Warm, Dry, normal turgor, no rashes or lesions noted. Physical Exam - Vital signs Vitals: Temp Pulse Resp BP Pulse Ox 98.6 F 52 L 20 153/67 H 98 12/11/17 00:49 12/11/17 00:49 12/11/17 00:49 12/11/17 00:49 12/11/17 00:49 Course - Re-evaluation Re-evalutation: 12/11/17 03:[address] with iv contrast 12/11/17 04:09 Ct noted improvement of abscess, pt given haldol after zofran and reglan didnt work, he notes resolution of vomiting, he is eating ice chips now 12/11/17 05:03 Patient notes he feels much better, wishes to be discharged home, he is drank 2 cups of water with no problems and stable for discharge After performing a Medical Screening Examination, I estimate there is LOW risk for ACUTE APPENDICITIS, BOWEL OBSTRUCTION, ACUTE CHOLECYSTITIS, PERFORATED DIVERTICULITIS, INCARCERATED HERNIA, PANCREATITIS, TESTICULAR TORSION or PERFORATED ULCER, thus I consider the discharge disposition reasonable. Also, there is no evidence or peritonitis, sepsis, or toxicity. I have reevaluated this patient multiple times and no significant life threatening changes are noted. The patient and I have discussed the diagnosis and risks, and we agree with discharging home with close follow-up with the understanding that symptoms and presentations can change. We also discussed returning to the Emergency Department immediately if new or worsening symptoms occur. We have discussed the symptoms which are most concerning (e.g., bloody stool, fever, changing or worsening pain, intractable vomiting - standard verbal up date) that necessitate immediate return. - Vital Signs Vital signs: Temp Pulse Resp BP Pulse Ox 98.6 F 52 L 21 H 158/72 H 99 12/11/17 00:49 12/11/17 00:49 12/11/17 04:01 12/11/17 04:01 12/11/17 04:01 - Laboratory Result Diagrams: 12/11/17 01:35 12/11/17 01:35 Laboratory results interpreted by me: 12/11/17 12/11/17 12/11/17 01:35 01:35 01:35 WBC 14.8 H Seg Neutrophils % 85.1 H Lymphocytes % 9.6 L Absolute Neutrophils 12.6 H VBG pH 7.45 H VBG pCO2 32.6 L Sodium 145.4 H Carbon Dioxide 20 L Anion Gap 20 H Direct Bilirubin 0.6 H Total Protein 6.2 L Urine Protein Urine Ketones 12/11/17 03:08 WBC Seg Neutrophils % Lymphocytes % Absolute Neutrophils VBG pH VBG pCO2 Sodium Carbon Dioxide Anion Gap Direct Bilirubin Total Protein Urine Protein 30 H Urine Ketones 80 H - Diagnostic Test Radiology reviewed: Image reviewed - ct abd pelvis notes improvement of the abscess, Reports reviewed Discharge - Discharge Clinical Impression: Abdominal pain Qualifiers: Abdominal location: unspecified location Qualified Code(s): R10.9 - Unspecified abdominal pain Nausea & vomiting Qualifiers: Vomiting type: unspecified Vomiting Intractability: non-intractable Qualified Code(s): R11.2 - Nausea with vomiting, unspecified Condition: Stable Disposition: HOME, SELF-CARE Instructions: Abdominal Pain ([facility]) Additional Instructions: Follow up with your physician tomorrow for further care or return to the ED IMMEDIATELY if symptoms worsen or new concerns occur. If you cannot afford to follow up with your primary care physician a list of low cost clinics have been provided at the end of your discharge papers as well. Prescriptions: Ondansetron [Zofran Odt] 8 mg PO Q6 #14 tab.rapdis Promethazine HCl [Promethegan] 50 mg RC Q6 #14 supp.rect
[2017-12-11] MEDS ORDERED: AMPICILLIN SOD/SULBACTAM 3 GM VIAL IV ONE (01:49)
[2017-12-11 01:51] LABS: ABSOLUTE LYMPHOCYTES (AUTO) 1.4 10^3/uL (0.5-4.7); ABSOLUTE MONOCYTES (AUTO) 0.7 10^3/uL (0.1-1.4); ABSOLUTE NEUT (AUTO) 12.6 10^3/uL (1.7-8.2); BASOPHILS % (AUTO) 0.2 % (0-2); EOSINOPHILS % (AUTO) 0.1 % (0-6); HEMATOCRIT 41.2 % (37.9-51.0); HEMOGLOBIN 14.2 g/dL (13.5-17.0); LYMPHOCYTES % (AUTO) 9.6 % (13-45); MEAN CORPUSCULAR HEMOGLOBIN 31.1 pg (27.0-33.4); MEAN CORPUSCULAR HGB CONC 34.4 g/dL (32.0-36.0); MEAN CORPUSCULAR VOLUME 90 fl (80-97); PLATELET COUNT 301 10^3/uL (150-450); RED BLOOD COUNT 4.56 10^6/uL (4.35-5.55); RED CELL DISTRIBUTION WIDTH 13.1 % (11.5-14.0); SEGMENTED NEUTROPHILS % (AUTO) 85.1 % (42-78); TOTAL CELLS COUNTED % (AUTO) 100 %; WHITE BLOOD COUNT 14.8 10^3/uL (4.0-10.5)
[2017-12-11 02:03] LABS: INTERNATIONAL RATION (INR) 0.96; PROTHROMBIN TIME 13.3 SEC (11.4-15.4)
[2017-12-11] MEDS ORDERED: ONDANSETRON 4 MG TAB.RAPDIS PO ONE (02:15)
[2017-12-11 02:23] LABS: ALANINE AMINOTRANSFERASE 32 U/L (21-72); ALBUMIN 3.5 g/dL (3.5-5.0); ALKALINE PHOSPHATASE 123 U/L (38-126); ASPARTATE AMINO TRANSFERASE 21 U/L (17-59); BILIRUBIN,DIRECT 0.6 mg/dL (0.0-0.4); BILIRUBIN,TOTAL 0.7 mg/dL (0.2-1.3); BLOOD UREA NITROGEN 7 mg/dL (7-20); CALCIUM 9.4 mg/dL (8.4-10.2); CHLORIDE 105 mmol/L (98-107); GLUCOSE 105 mg/dL (75-110); POTASSIUM 3.6 mmol/L (3.6-5.0); TOTAL PROTEIN 6.2 g/dL (6.3-8.2)
[2017-12-11 02:29] LABS: CARBON DIOXIDE 20 mmol/L (22-30); SODIUM 145.4 mmol/L (137-145)
[2017-12-11 02:30] LABS: ANION GAP 20 (5-19)
[2017-12-11] MEDS ORDERED: HALOPERIDOL LACTATE INJ 5 MG/1 ML VIAL IV ONE (02:49)
[2017-12-11] MEDS ORDERED: DIPHENHYDRAMINE HCL 50 MG/ML VIAL IV ONE (02:49)
--- NOTE | 2017-12-11 03:02 | RADIOLOGY REPORT (SQ) ---
EXAM DESCRIPTION: US ABDOMEN ANEURYSM SCREENING COMPLETED DATE/TME: 12/11/2017 01:45 CLINICAL HISTORY: 27 years Male, post surgical abscess drain placement pain COMPARISON: CT, 12/07/2015 NUMBER OF VIEWS/TECHNIQUE: 3 LIMITATIONS: None. FINDINGS: Intestinal gas pattern is within normal limits. Paucity of bowel gas. Catheter drain at the right paracentral pelvis. No suspicious calcification. Grossly intact skeletal structures. No acute cardiopulmonary findings. IMPRESSION: No acute findings.
--- NOTE | 2017-12-11 03:57 | RADIOLOGY REPORT (SQ) ---
EXAM DESCRIPTION: CT ABDOMEN PELVIS WITH IV CONTRAST COMPLETED DATE/TME: 12/11/2017 03:14 CLINICAL HISTORY: 27 years Male, Right lower quadrant pain, recent abscess Comparison: None. Technique: IV contrast. Coronal and sagittal reformat. This exam was performed according to our departmental dose-optimization program, which includes automated exposure control, adjustment of the mA and/or kV according to patient size and/or use of iterative reconstruction technique.[facility]: Dose Right [facility]: CareDose [facility]: Dose Right [facility]: Teradose 4D [facility]: [employer] LIMITATIONS: None Findings: Pelvic drain catheter tip at the right paracentral pelvis with near complete collapse of a previous abscess collection in the right paracentral pelvis now measures 1.5 cm or less. Moderate low attenuation diffuse bowel wall thickening throughout the large bowel suggests prior insult. No ascites. Inferior thorax, liver, gallbladder, pancreas, spleen, adrenals, renal system, gastrointestinal tract, pelvic organs, lymphatics, vasculature, and musculoskeleton appear otherwise unremarkable. IMPRESSION: Interval improvement with near complete collapse of a previous pelvic abscess.
[2017-12-11 04:22] LABS: APPEARANCE,URINE CLEAR; BILIRUBIN,URINE NEGATIVE (NEGATIVE); COLOR,URINE YELLOW; GLUCOSE, URINE NEGATIVE (NEGATIVE); KETONES,URINE 80 mg/dL (NEGATIVE); LEUKOCYTE ESTERASE,URINE NEGATIVE (NEGATIVE); NITRITE,URINE NEGATIVE (NEGATIVE); PROTEIN,URINE 30 mg/dL (NEGATIVE); URINE SPECIFIC GRAVITY 1.023; UROBILINOGEN,URINE NEGATIVE mg/dL (<2.0)
[2017-12-11 05:04] VITALS: BP 147/113
[2017-12-11] MEDS ORDERED: ONDANSETRON ODT 4 MG TAB (6 TAB/ER DISP) PO PRN (05:04)
--- NOTE | 2017-12-11 09:39 | EKG REPORT ---
SEVERITY:- ABNORMAL ECG - SINUS RHYTHM NONSPECIFIC INTRAVENTRICULAR CONDUCTION DELAY : Confirmed by: Juan Cano 11-Dec-2017 09:38:38
== END 2017-12-11 05:05 | disposition home or self-care (01) ==
LOC: ER 00:08
DX: R11.2 Nausea with vomiting, unspecified (principal); K65.1 Peritoneal abscess; R10.9 Unspecified abdominal pain; Z98.890 Other specified postprocedural states
CPT/HCPCS: 93005; 99284; 96361; 96375; 96365; 36415; 87040; 87086; 85025; 85610; 80053; 81001; 82803; 83605; 74022; 74177; 93010; J1200; S0119; J3010; J0295; J1630; J2765; J7030

== ENCOUNTER → 2017-12-16 | Outpatient (CLI) | payer SELFPAY ==
[2017-12-16 13:54] LABS: ABSOLUTE BASOPHILS # (AUTO) 0.1 10^3/uL (0.0-0.2); ABSOLUTE EOSINOPHILS # (AUTO) 0.2 10^3/uL (0.0-0.6); ABSOLUTE MONOCYTES (AUTO) 1.2 10^3/uL (0.1-1.4); ABSOLUTE NEUT (AUTO) 9.2 10^3/uL (1.7-8.2); BASOPHILS % (AUTO) 0.5 % (0-2); EOSINOPHILS % (AUTO) 1.4 % (0-6); HEMATOCRIT 43.9 % (37.9-51.0); HEMOGLOBIN 14.9 g/dL (13.5-17.0); LYMPHOCYTES % (AUTO) 21.9 % (13-45); MEAN CORPUSCULAR HEMOGLOBIN 30.8 pg (27.0-33.4); MEAN CORPUSCULAR HGB CONC 34.1 g/dL (32.0-36.0); MEAN CORPUSCULAR VOLUME 90 fl (80-97); MONOCYTES % (AUTO) 8.7 % (3-13); PLATELET COUNT 382 10^3/uL (150-450); RED BLOOD COUNT 4.85 10^6/uL (4.35-5.55); RED CELL DISTRIBUTION WIDTH 13.6 % (11.5-14.0); SEGMENTED NEUTROPHILS % (AUTO) 67.5 % (42-78); TOTAL CELLS COUNTED % (AUTO) 100 %; WHITE BLOOD COUNT 13.7 10^3/uL (4.0-10.5)
== END ==
LOC: OD 13:24
PROVIDERS: ATTEND Physician Assistant Surgical
DX: K65.1 Peritoneal abscess (principal)
CPT/HCPCS: 36415; 85025

== ENCOUNTER → 2018-01-29 | Outpatient (CLI) | payer MEDICAID ==
--- NOTE | 2018-01-29 16:02 | RADIOLOGY REPORT (SQ) ---
EXAM DESCRIPTION: CT ABDOMEN COMBO COMPLETED DATE/TIME: 01/29/2018 1:58 pm REASON FOR STUDY: K65.1 PERITONEAL ABSCESS K65.1 PERITONEAL ABSCESS COMPARISON: None. TECHNIQUE: CT scan of the abdomen performed with and without intravenous contrast, and with oral con trast. Contrasted imaging performed using helical scanning technique with dynamic intravenous contras t injection. Images reviewed with lung, soft tissue, and bone windows. Reconstructed coronal and sagi ttal MPR images reviewed. Delayed images for evaluation of the urinary system also acquired and evalu ated. All images stored on PACS. All CT scanners at this facility use dose modulation, iterative reconstruction, and/or weight based d osing when appropriate to reduce radiation dose to as low as reasonably achievable (ALARA). [facility]: Dose Right [facility]: CareDose [facility]: Dose Right [facility]: Teradose 4D [facility]: [employer] CONTRAST TYPE AND DOSE: contrast/concentration: Isovue 350.00 mg/ml; Total Contrast Delivered: 100.0 ml; Total Saline Delivered: 72.0 ml RENAL FUNCTION: None required. The patient is less than 50 years old. RADIATION DOSE: CT Rad equipment meets quality standard of care and radiation dose reduction techniq ues were employed. CTDIvol: 18.7 - 21.1 mGy. DLP: 2436 mGy-cm.. LIMITATIONS: None. FINDINGS: NONCONTRASTED IMAGING: No significant renal or bladder calcifications. No other significan t organ calcifications. POSTCONTRASTED IMAGING: LOWER CHEST: No significant findings. No nodules or infiltrates. LIVER: Normal size. No masses. No dilated ducts. SPLEEN: Normal size. No focal lesions. PANCREAS: No masses. No significant calcifications. No adjacent inflammation or peripancreatic fluid collections. Pancreatic duct not dilated. GALLBLADDER: No identified stones by CT criteria. No inflammatory changes to suggest cholecystitis. ADRENAL GLANDS: No significant masses or asymmetry. RIGHT KIDNEY AND URETER: No solid masses. No significant calcifications. No hydronephrosis or hyd roureter. LEFT KIDNEY AND URETER: No solid masses. No significant calcifications. No hydronephrosis or hydr oureter. AORTA AND VESSELS: No aneurysm. No dissection. Renal arteries, SMA, celiac without stenosis. RETROPERITONEUM: No retroperitoneal adenopathy, hemorrhage or masses. BOWEL AND PERITONEAL CAVITY: There are multiple small mesenteric nodes. No bowel masses or inflammat ory changes are seen. APPENDIX: Not included. ABDOMINAL WALL: No masses. No hernias. BONES: No significant or acute findings. OTHER: No other significant finding. IMPRESSION: 1. No acute findings are seen in the abdomen. 2. There are some small nonspecific mesenteric nodes. Cannot exclude a mesenteric adenitis. 3. The patient previously had a pelvic abscess that was drained. This area is not included in this CT of the abdomen. TECHNICAL DOCUMENTATION: JOB ID: [id number] Quality ID # [id number]: Final reports with documentation of one or more dose reduction techniques (e.g., Au tomated exposure control, adjustment of the mA and/or kV according to patient size, use of iterative reconstruction technique) 2010 [employer]- All Rights Reserved Reading location - IP/workstation name: [email or web address]
== END ==
LOC: RAD 13:57
PROVIDERS: ATTEND Surgery
DX: K65.1 Peritoneal abscess (principal)
CPT/HCPCS: 74170

== ENCOUNTER → 2018-02-04 | Outpatient (CLI) | payer MEDICAID ==
--- NOTE | 2018-02-04 10:23 | RADIOLOGY REPORT (SQ) ---
EXAM DESCRIPTION: CT PELVIS WITH COMPLETED DATE/TIME: 02/04/2018 8:34 am REASON FOR STUDY: PERITONEAL ABSCESS (K65.1) K65.1 PERITONEAL ABSCESS COMPARISON: 12/11/2017 TECHNIQUE: CT scan of the pelvis performed with intravenous contrast. Images reviewed with soft tis owen and bone windows. Reconstructed coronal and sagittal MPR images reviewed. All images stored on PACS. All CT scanners at this facility use dose modulation, iterative reconstruction, and/or weight based d osing when appropriate to reduce radiation dose to as low as reasonably achievable (ALARA). [facility]: Dose Right [facility]: CareDose [facility]: Dose Right [facility]: Teradose 4D [facility]: [employer] RADIATION DOSE: CT Rad equipment meets quality standard of care and radiation dose reduction techniq ues were employed. CTDIvol: 17.8 - 20.1 mGy. DLP: 1268 mGy-cm. mGy. LIMITATIONS: None. FINDINGS: The percutaneous drainage catheter has been removed. Approximately 2.5 cm focus of abnorm al soft tissue with small gas bubbles to right of midline but no significant reaccumulation. No obst ruction. IMPRESSION: Small residual focus of scarring but no significant fluid reaccumulation status post div erticular abscess drainage. TECHNICAL DOCUMENTATION: JOB ID: [id number] Quality ID # [id number]: Final reports with documentation of one or more dose reduction techniques (e.g., Au tomated exposure control, adjustment of the mA and/or kV according to patient size, use of iterative reconstruction technique) 2010 [employer]- All Rights Reserved Reading location - IP/workstation name: [email or web address]
== END ==
LOC: RAD 08:01
PROVIDERS: ATTEND Surgery
DX: K65.1 Peritoneal abscess (principal)
CPT/HCPCS: 72193

== ENCOUNTER 2018-04-03 09:11 | Day surgery (SDC) | payer MEDICAID ==
[~2018-04-03 09:11] MED LIST: DIPHENHYDRAMINE HCL 50 MG/ML VIAL ONE; ONDANSETRON HCL INJ/PF 4 MG/2 ML SDV ONE
[2018-04-03] MEDS ORDERED: EPINEPHRINE INJ 1 MG/10 ML DISP.SYRIN ONE (09:12)
[2018-04-03] MEDS ORDERED: FLUMAZENIL INJ 0.5 MG/5 ML VIAL ONE (09:12)
[2018-04-03] MEDS ORDERED: NALOXONE HCL INJ/PF 0.4 MG/1 ML SDV ONE (09:12)
[2018-04-03] MEDS ORDERED: GLUCAGON,HUMAN RECOMB 1 MG INJ ONE (09:12)
[2018-04-03] MEDS: MIDAZOLAM 2 MG/2 ML INJ ONE ×5 (09:40→10:00)
[2018-04-03] MEDS: FENTANYL CITRATE INJ/PF 100 MCG/2 ML AMPUL ONE ×3 (09:42→09:56)
--- NOTE | 2018-04-03 10:30 | Discharge Summary ---
Discharge Summary (SDC) - Discharge Final Diagnosis: 1. Sigmoid diverticulosis 2. Sigmoid colitis Date of Surgery: 04/03/18 Discharge Date: 04/03/18 Condition: Good Treatment or Instructions: [facility] [address] [id number] POST ENDOSCOPY DISCHARGE INSTRUCTIONS 1. Diet: Start clear liquids that a regular diet as tolerated. 2. Resume all preoperative medications. All oral anticoagulants and aspirins can be resumed 24 hours after procedure. 3. If a polypectomy was performed some bleeding per rectum may occur. This should stop within 3 days. If not, please contact the office. 4. If you had a colonoscopy you may experience some bloating and delayed return of normal bowel function for several days, your regular bowel movement pattern should resume within a week. 5. Please contact [facility] at to make an appointment with Dr. León for 1 to 3 weeks following procedure. 6. If you have any questions or concerns regarding your care,treatment plan or follow up, please contact our office. 7. The follow-up colonoscopy timing depend on the results of the final path report today Discharge Diet: As Tolerated Discharge Activity: Activity As Tolerated Home Care Assistance: None Needed Report the Following to Your Physician Immediately: Shortness of Breath, Increase in Pain, Fever over 101 Degrees
--- NOTE | 2018-04-03 10:33 | Operative Report ---
Operative Report DATE OF SURGERY: 04/03/18 PREOPERATIVE DIAGNOSIS: 1. History of perforated sigmoid diverticulitis with mckayla- colonic abscess POSTOPERATIVE DIAGNOSIS: Same with. 1. tortuous sigmoid colon. 2. Rare sigmoid diverticulosis. 3. Mild sigmoid colitis OPERATION: 1. Total colonoscopy to cecum. 2. Cold forceps biopsy of distal descending colon and sigmoid colon mucosa SURGEON: RIKKI RANGEL ANESTHESIA: Moderate Sedation TISSUE REMOVED OR ALTERED: Biopsies of mucosa COMPLICATIONS: None ESTIMATED BLOOD LOSS: Scant INTRAOPERATIVE FINDINGS: See below PROCEDURE: Obtaining informed consent the patient was taken from the preoperative holding area to the main endoscopy suite where monitoring devices were attached to the patient. Plan and surgical timeout were conducted The patient was placed in the left lateral decubitus position with knees to chest. A perianal examination was performed. There was no visible or palpable anorectal pathology. Sphincter tone was felt to be normal. The flexible adult colonoscope was advanced through the anal rectal canal, all the way to the cecum. Visualization of the cecum was achieved and the ileocecal valve, the appendiceal orifice and transillumination of the anterior abdominal wall. This was an excellent study on the well-prepped bowel. The colonoscope was withdrawn slowly and methodically checked and the mucosa carefully. The sigmoid colon was mildly tortuous. There were scattered rare sigmoid diverticulosis. There were multiple subtle punctate almost targetoid coastal- like erythematous patches. 2 of these were biopsied one in the area of the descending colon and a second area in the rectosigmoid region. Multiple photos were taken. There was no evidence of tumor, stricture, bleeding or polyp. The scope was slowly withdrawn through the anal rectal canal. Complete visualization of the rectum was achieved with photodocumentation. The scope was withdrawn to the patient's anus. The patient tolerated the procedure well and was taken to the recovery area in stable condition. Follow-up colonoscopy will depend upon the results of the final path report from today's biopsy.
[2018-04-03 11:26] VITALS: BP 124/59
== END 2018-04-03 11:30 | disposition home or self-care (01) ==
LOC: END 09:11
PROVIDERS: ATTEND Surgery
DX: K57.30 Diverticulosis of large intestine without perforation or abscess without bleeding (principal); K52.9 Noninfective gastroenteritis and colitis, unspecified; Z87.891 Personal history of nicotine dependence; Z79.1 Long term (current) use of non-steroidal anti-inflammatories (NSAID)
CPT/HCPCS: 45380; 88305 ×2; J2250; J3010; J0171; J1200; J1610; J2310; J2405; J3490

== ENCOUNTER 2018-09-29 08:24 | Emergency (ER) | payer SELFPAY ==
[2018-09-29 08:31] VITALS: BP 132/69
[2018-09-29] MEDS ORDERED: OXYCODONE-ACETAMINOPHEN 5-325 MG TABLET PO ONE (09:11)
[2018-09-29] MEDS ORDERED: SULFAMETHOXAZOLE/TRIMETHOPRIM 800-160 MG TABLET PO ONE (09:11)
--- NOTE | 2018-09-29 09:14 | ER Document Report ---
ED General - General Chief Complaint: Abscess Stated Complaint: POSSIBLE ABSCESS Time Seen by Provider: 09/29/18 09:11 Primary Care Provider: SHAGUFTA OTT MD [NO LOCAL MD] - Follow up in 3-5 days Notes: 28-year-old male with no significant past medical history other than a diverticular abscess in the past, presents with recurrent swelling and pain to the perineal area. He says he has had an abscess there at least 3 times in his life which always spontaneously drains pus. This time is been present for 3 days. He describes it is posterior to his scrotum not involving his anus. He does not have pain with pooping. He has no fever. No injection drug use. My symptoms of STDs, denies testicle pain. TRAVEL OUTSIDE OF THE [place] IN LAST 30 DAYS: No - Related Data Allergies/Adverse Reactions: No Known Allergies Allergy (Verified 09/29/18 08:25) Past Medical History - Social History Smoking Status: Current Every Day Smoker Smoking Education Provided: Yes - The patient ED visit today was directly related to their abuse of tobacco. Family History: Reviewed & Not Pertinent - Past Medical History Cardiac Medical History: Denies: Hx Coronary Artery Disease, Hx Heart Attack, Hx Hypertension Pulmonary Medical History: Denies: Hx Asthma, Hx Bronchitis, Hx COPD, Hx Pneumonia Neurological Medical History: Denies: Hx Cerebrovascular Accident, Hx Seizures Renal/ Medical History: Denies: Hx Peritoneal Dialysis Musculoskeletal Medical History: Denies Hx Arthritis Psychiatric Medical History: Denies: Hx Depression Past Surgical History: Reports: Hx Abdominal Surgery, Hx Orthopedic Surgery - hand - Immunizations Hx Diphtheria, Pertussis, Tetanus Vaccination: Yes Review of Systems - Review of Systems Notes: REVIEW OF SYSTEMS GEN: Denies fever, chills, weight loss ENT: Denies sore throat, nasal discharge, ear pain EYES: Denies blurry vision, eye pain, discharge CV: Denies chest pain, palpitations, edema RESP: Denies cough, shortness of breath, wheezing GI: Denies abdominal pain, nausea, vomiting, diarrhea MSK: Denies joint pain/swelling, edema, SKIN: Denies rash, skin lesions LYMPH: Denies swollen glands/lymph nodes NEURO: Denies headache, focal weakness or numbness, dizziness PSYCH: Denies depression, suicidal or homicidal ideation PHYSICAL EXAMINATION General: No acute distress, well-nourished Head: Atraumatic, normocephalic ENT: Mouth normal, oropharynx moist, no exudates or tonsillar enlargement Eyes: Conjunctiva normal, pupils equal, lids normal Neck: No JVD, supple, no guarding CVS: Normal rate, regular rhythm, no murmurs Resp: No resp distress, equal and normal breath sounds bilaterally GI: Nondistended, soft, no tenderness to palpation, no rebound or guarding normal penis and scrotum. There is a midline swelling with tenderness at the posterior most aspect of the scrotum/perineum. There is no crepitus, no erythema no involvement of the scrotum proper and no involvement of the p osterior anal region. Ext: No deformities, no edema, normal range of motion in upper and lower ext Back: No CVA or midline TTP Skin: No rash, warm Lymphatic: No lymphadeopathy noted Neuro: Awake, alert. Face symmetric. GCS 15. Physical Exam - Vital signs Vitals: Temp Pulse Resp BP Pulse Ox 97.8 F 90 16 132/69 H 95 09/29/18 08:30 09/29/18 08:30 09/29/18 08:30 09/29/18 08:30 09/29/18 08:30 Course - Re-evaluation Re-evalutation: 09/29/18 09:17 Patient presents with perineal abscess. He is young nonalcoholic nondiabetic and have a very low suspicion for Jovi's gangrene. Is been going on for several days. It is strangely in the midline which could reflect some kind of developmental anomaly, cyst, or involvement of the urethra or posterior scrotal structures. He is clinically nontoxic. Will given some pain medicine and start him on antibiotics. I paged urology [facility] and will discuss with him. 09/29/18 09:52 Discussed with Bonita FRANCES for urology who says he will see the patient W ednesday and agrees with treatment plan. - Vital Signs Vital signs: Temp Pulse Resp BP Pulse Ox 97.8 F 90 16 132/69 H 95 09/29/18 08:30 09/29/18 08:30 09/29/18 08:30 09/29/18 08:30 09/29/18 08:30 Discharge - Discharge Clinical Impression: Perineal abscess Condition: Good Disposition: HOME, SELF-CARE Instructions: Abscess ([facility]) Prescriptions: Oxycodone HCl/Acetaminophen [Percocet 5-325 mg Tablet] 1 - 2 tab PO Q4H PRN #15 tablet PRN Reason: Sulfamethoxazole/Trimethoprim [Bactrim Ds Tablet] 1 each PO BID #14 tablet Referrals: SHAGUFTA OTT MD [NO LOCAL MD] - Follow up in 3-5 days
== END 2018-09-29 09:46 | disposition home or self-care (01) ==
LOC: ER 08:24
DX: L02.215 Cutaneous abscess of perineum (principal); F17.200 Nicotine dependence, unspecified, uncomplicated
CPT/HCPCS: 99282